=== PATIENT | male | born 1995 | race Caucasian/White ===

== ENCOUNTER 2017-07-25 12:41 | Emergency (ER) | payer MEDICAID ==
[2017-07-25 13:35] VITALS: BP 143/52
--- NOTE | 2017-07-25 14:11 | EDM.PDOC ---
ED HPI GENERAL MEDICAL PROBLEM - General Chief Complaint: Lower Extremity Injury/Pain Stated Complaint: ROLLED LEFT ANKLE Time Seen by Provider: 07/25/17 13:46 Source of Information: Reports: Patient History Limitations: Reports: No Limitations - History of Present Illness INITIAL COMMENTS - FREE TEXT/NARRATIVE: 21 yo male presents post injury to left ankle. earlier today he stepped in uneven ground and medially rolled left ankle. he wsa unable to walk after injury with immediate swelling. Generally healthy Left Ankle Pain Score (Numeric/FACES): 4 - Related Data Allergies Allergy/AdvReac Type Severity Reaction Status Date / Time No Known Allergies Allergy Verified 07/25/17 13:51 Home Meds: Home Meds Multivitamins/Minerals [Vitamins and Minerals] 1 tab PO DAILY 12/07/13 [History] Past Medical History Musculoskeletal History: Reports: Fracture Other Musculoskeletal History: wrist - Infectious Disease History Infectious Disease History: Reports: Chicken Pox - Past Surgical History Musculoskeletal Surgical History: Reports: Shoulder Surgery Social & Family History - Tobacco Use Smoking Status *Q: Never Smoker - Caffeine Use Caffeine Use: Reports: None - Recreational Drug Use Recreational Drug Use: No Review of Systems - Review of Systems Review Of Systems: See Below Constitutional: Denies: Chills, Fever Respiratory: Denies: Shortness of Breath, Wheezing Cardiovascular: Denies: Chest Pain ED EXAM, GENERAL - Physical Exam Exam: See Below Exam Limited By: No Limitations General Appearance: Alert, WD/WN, No Apparent Distress, Other (exam limited to left ankle) Respiratory/Chest: No Respiratory Distress Extremities: Joint Swelling (moderate edema, lateral left ankle pain with palp, ROM limited by pain) Course - Vital Signs Last Recorded V/S: Last Vital Signs Temp 36.9 C 07/25/17 13:41 Pulse 71 07/25/17 13:41 Resp 16 07/25/17 13:41 BP 143/52 H 07/25/17 13:41 Pulse Ox 97 07/25/17 13:41 - Orders/Labs/Meds Orders: Active Orders 24 hr Category Date Time Status Ankle Min 3V Lt [CR] Stat Exams 07/25/17 14:10 Taken - Re-Assessments/Exams Free Text/Narrative Re-Assessment/Exam: 07/25/17 14:33 preliminary review of X-ray no fractures or dislocation Departure - Departure Time of Disposition: 14:34 Disposition: Home, Self-Care 01 Condition: Good Clinical Impression: Sprained ankle Qualifiers: Encounter type: initial encounter Involved ligament of ankle: unspecified ligament Laterality: left Qualified Code(s): S93.402A - Sprain of unspecified ligament of left ankle, initial encounter - Discharge Information Referrals: PCP,None [Primary Care Provider] - Forms: ED Department Discharge Additional Instructions: splint in place for 7 days crutches with weight bearing as tolerated. Goal of full weight bearing in 4 days if pain continues in 7-10 days follow-up with primary care provider for repeat x -ray and referral to physical therapy - My Orders Last 24 Hours: My Active Orders 07/25/17 14:10 Ankle Min 3V Lt [CR] Stat - Assessment/Plan Last 24 Hours: My Active Orders 07/25/17 14:10 Ankle Min 3V Lt [CR] Stat
--- NOTE | 2017-07-27 09:21 | CR ---
Tiny ossific densities medial malleolus may indicate age-indeterminate avulsion fragments. Soft tissu e swelling. Ankle is otherwise intact. Bone islands.
== END 2017-07-25 15:10 | disposition home or self-care (01) ==
LOC: JP.ED 12:41
DX: S93.402A Sprain of unspecified ligament of left ankle, initial encounter (principal); X50.9XXA Other and unspecified overexertion or strenuous movements or postures, initial encounter; Z79.899 Other long term (current) drug therapy
CPT/HCPCS: 73610-26-LT; 73610-LT; 99284

== ENCOUNTER 2025-02-22 03:31 | Emergency (ER) | payer MEDICAID, OTHER ==
[2025-02-22 03:54] VITALS: BP 102/65; PULSE 101
[2025-02-22 04:27] LABS: CORONAVIRUS COVID-19 NAA NEGATIVE (NEGATIVE); INFLUENZA A NAA POSITIVE (NEGATIVE); INFLUENZA B NAA NEGATIVE (NEGATIVE); RESPIRATORY SYNCYTIAL VIR NAA NEGATIVE (NEGATIVE)
[2025-02-22] MEDS: Ketorolac 30 MG/ML SDV IM ONE (04:44)
== END 2025-02-22 04:59 | disposition home or self-care (01) ==
LOC: JP.ED 03:31
DX: J10.1 Influenza due to other identified influenza virus with other respiratory manifestations (principal)
CPT/HCPCS: 87637; 96372; 99283; J1885